=== PATIENT | female | born 1985 | race Caucasian/White ===

== ENCOUNTER 2017-07-07 12:00 | Emergency (ER) | payer OTHER ==
[2017-07-07 12:01] VITALS: BMI 23.0
[2017-07-07 12:22] VITALS: BP 122/83; PULSE 90; RESP 18; TEMP 98.1; O2SAT 100
--- NOTE | 2017-07-07 12:33 | C.PDOC ---
History Of Present Illness 32 year old female presents to the ER complaining of nasal congestion for 3 weeks. Patient reports lots of yellow mucus and reports frontal headache and left sided facial pain. Patient states the mucus has blood streaks for the past 2 days. Patient reports that she has been trying to call her PCP, but she has not been able to get an appointment. Patient states that she took the over the counter medication Mucinex which provided mild relief. Patient denies having any fever Time Seen by Provider: 07/07/17 12:24 Chief Complaint (Nursing): ENT Problem History Per: Patient History/Exam Limitations: no limitations Onset/Duration Of Symptoms: Days Current Symptoms Are (Timing): Still Present Severity: Moderate Past Medical History Reviewed: Historical Data, Nursing Documentation, Vital Signs Vital Signs: Last Vital Signs Temp 98.1 F 07/07/17 12:14 Pulse 90 07/07/17 12:14 Resp 18 07/07/17 12:14 BP 122/83 07/07/17 12:14 Pulse Ox 100 07/07/17 13:34 - Medical History PMH: Depression Surgical History: No Surg Hx Family History: States: No Known Family Hx - Social History Hx Alcohol Use: No Hx Substance Use: No Review Of Systems Except As Marked, All Systems Reviewed And Found Negative. Constitutional: Negative for: Fever, Chills Eyes: Negative for: Redness ENT: Positive for: Nose Congestion Cardiovascular: Negative for: Palpitations Respiratory: Positive for: Sputum (sputum has blood streaks). Negative for: Cough, Wheezing Gastrointestinal: Negative for: Vomiting, Abdominal Pain, Diarrhea Genitourinary: Negative for: Dysuria Skin: Negative for: Rash Neurological: Positive for: Headache. Negative for: Weakness, Numbness Physical Exam - Physical Exam Appears: Well, Non-toxic, No Acute Distress Skin: Normal Color, Warm Head: Atraumatic, Normacephalic Eye(s): bilateral: Normal Inspection, PERRL, EOMI Ear(s): Bilateral: Normal Nose: Other (congestion, no blood, left maxillary sinus tenderness) Oral Mucosa: Moist Throat: Normal, No Erythema, No Exudate, No Drooling, No Mass Neck: Normal ROM, Supple Chest: Symmetrical Cardiovascular: Rhythm Regular, No Murmur Respiratory: Normal Breath Sounds, No Accessory Muscle Use, No Wheezing Extremity: Bilateral: Atraumatic, Normal Color And Temperature, Normal ROM Neurological/Psych: Oriented x3, Normal Speech Gait: Steady ED Course And Treatment O2 Sat by Pulse Oximetry: 100 (RA) Pulse Ox Interpretation: Normal Medical Decision Making Medical Decision Making: Patient with nasal congestion and yellow blood streaked mucus for 3 weeks and no relief with OTC medications. Patient has no fever and in no distress. She has sinus tenderness. Will treat for sinusitis. Rx given. Advise follow up with PCP Disposition Counseled Patient/Family Regarding: Diagnosis, Need For Followup, Rx Given - Disposition Disposition: HOME/ ROUTINE Disposition Time: 12:32 Condition: STABLE Additional Instructions: Follow up with your primary medical doctor or clinic in 2-5 days for further evaluation. Take medications as prescribed. Return to the emergency department at any time if symptoms persist or worsen Prescriptions: Amoxicillin/Clavulanate [Augmentin 875 MG-125 MG] 1 tab PO BID #14 tab Fluticasone Propionate [Flonase] 1 spray NS DAILY #1 bottle Instructions: Sinusitis (ED) Forms: [employer] (Japanese) - POA Present On Arrival: None - Clinical Impression Clinical Impression: Sinusitis - PA / WOOL DYER / Resident Statement MD/DO has reviewed & agrees with the documentation as recorded. - Scribe Statement The provider has reviewed the documentation as recorded by the Yi Arellano All medical record entries made by the Yi were at my direction and personally dictated by me. I have reviewed the chart and agree that the record accurately reflects my personal performance of the history, physical exam, medical decision making, and the department course for this patient. I have also personally directed, reviewed, and agree with the discharge instructions and disposition.
== END 2017-07-07 12:47 | disposition home or self-care (01) ==
LOC: C.ER 12:00
DX: J32.9 Chronic sinusitis, unspecified (principal)

== ENCOUNTER 2017-11-13 07:38 | Emergency (ER) | payer OTHER ==
[2017-11-13 07:38] VITALS: BMI 23.0
[2017-11-13 08:34] VITALS: BP 123/81; PULSE 67; TEMP 98.6; O2SAT 100
[2017-11-13 09:11] LABS: HCG,QUALITATIVE URINE NEGATIVE (NEGATIVE); SQUAMOUS EPITHIAL < 1 /hpf (0-5); URINE BILIRUBIN NEGATIVE (NEGATIVE); URINE BLOOD NEGATIVE (NEGATIVE); URINE CLARITY Hazy (Clear); URINE COLOR Yellow (YELLOW); URINE GLUCOSE (UA) NORMAL (Normal); URINE PROTEIN 1+ mg/dL (NEGATIVE); URINE UROBILINOGEN NORMAL mg/dL (0.2-1.0)
[2017-11-13 09:12] LABS: URINE LEUKOCYTE ESTERASE TRACE Leu/uL (Negative)
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
[2017-11-13 10:33] VITALS: RESP 18
== END 2017-11-13 09:42 | disposition home or self-care (01) ==
LOC: C.ER 07:38
DX: Z91.89 Other specified personal risk factors, not elsewhere classified (principal)

== ENCOUNTER 2018-04-17 22:28 | Emergency (ER) | payer MEDICAID, OTHER ==
[2018-04-17 22:28] VITALS: BMI 23.0
[2018-04-17 23:11] VITALS: BP 116/78; PULSE 94; RESP 18; TEMP 98.6; O2SAT 99
[2018-04-18] MEDS ORDERED: Albuterol 0.083% Inhal Sol (2.5 mg/3 mL) UD IH STA (00:04)
--- NOTE | 2018-04-18 00:05 | C.PDOC ---
History Of Present Illness 33 yo female w/PMhx of asthma come in for evaluation of low grade fever , sore throat, dry cough gradually developed for past few days. pt reports, " throat pain worsen today". Otherwise, pt denies high fever, lethargy, drooling, neck pain, CP, dyspnea, SOB, wheezing, abd. pain, V/D, UTI sx, rash, recent travel or known sick contact. Ambulate to Ed for evaluation, not in any apparent distress. Time Seen by Provider: 04/17/18 22:59 Chief Complaint (Nursing): Cough, Cold, Congestion History Per: Patient Past Medical History Reviewed: Historical Data, Nursing Documentation, Vital Signs Vital Signs: Last Vital Signs Temp 98.6 F 04/17/18 23:08 Pulse 94 H 04/17/18 23:08 Resp 18 04/17/18 23:08 BP 116/78 04/17/18 23:08 Pulse Ox 99 04/17/18 23:08 - Medical History PMH: Asthma, Depression Family History: States: No Known Family Hx - Social History Hx Tobacco Use: No Hx Alcohol Use: Yes Hx Substance Use: No - Immunization History Hx Tetanus Toxoid Vaccination: No Hx Influenza Vaccination: No Hx Pneumococcal Vaccination: No Review Of Systems Except As Marked, All Systems Reviewed And Found Negative. Constitutional: Negative for: Fever, Chills, Malaise ENT: Positive for: Nose Discharge, Nose Congestion, Throat Pain, Throat Swelling Cardiovascular: Negative for: Chest Pain Respiratory: Positive for: Cough. Negative for: Shortness of Breath, Sputum, Wheezing Gastrointestinal: Negative for: Nausea, Vomiting, Abdominal Pain, Diarrhea Genitourinary: Negative for: Dysuria Musculoskeletal: Negative for: Neck Pain, Back Pain Skin: Negative for: Rash Neurological: Negative for: Weakness, Numbness, Headache, Dizziness Physical Exam - Physical Exam Appears: Well, Non-toxic, No Acute Distress Skin: Normal Color, Warm, Dry, No Rash Head: Normacephalic Eye(s): bilateral: PERRL Ear(s): Bilateral: Normal Nose: No Flaring, Discharge (B/L nasal congestion with scant clear hinorrhea ) Oral Mucosa: Moist Tongue: Normal Appearing Lips: Normal Appearing Throat: Erythema (mod B/L), No Exudate, No Drooling, Other (uvula midline, no edema) Neck: Supple, Other ((-) meningeal sign) Cardiovascular: Rhythm Regular, No Murmur, No JVD Respiratory: No Decreased Breath Sounds, No Accessory Muscle Use, No Stridor, Wheezing (scattered Right basilra exp wheezing. BS equal B/L) Gastrointestinal/Abdominal: Soft, No Tenderness, No Distention, No Guarding, No Rebound Rectal: No Deferred Extremity: Normal ROM, No Deformity, No Swelling Neurological/Psych: Oriented x3, Normal Speech, Normal Motor, Normal Sensation, Normal Reflexes ED Course And Treatment O2 Sat by Pulse Oximetry: 99 Pulse Ox Interpretation: Normal Progress Note: On re-eval, pt is afebrile, hemodynamicaly stable, non-toxic. T olerate PO well in ED. PulsEOx 99% RA. ENT: exam c/w acute pharyngitis. Neck: Supple, (-) meningeal sign. Lungs: CTA B/L, BS equal B/L. CVS: (+)S1S2, reg, (-) murmur. Abd: benign, (-) guarding, (-) rebound. Neurologicaly intact. Pt advised on course of ds. Ref. to f/u with PMD in 1-2 days for re-eavl. return to ED if any worsening or new changes. Disposition Counseled Patient/Family Regarding: Diagnosis, Need For Followup, Rx Given - Disposition Referrals: [facility] [Outside] Disposition: HOME/ ROUTINE Disposition Time: 00:22 Condition: STABLE Additional Instructions: Encourage fluids take medication as prescribed Follow up with PMD in 2-3 days for re-evaluation. return to ED if any worsening or new changes. Prescriptions: Albuterol HFA [Ventolin HFA 90 mcg/actuation (8 g)] 1 puff IH Q6 #1 inhaler Amoxicillin 875 mg PO BID #14 tablet Prednisone [Deltasone] 20 mg PO DAILY #3 tablet Instructions: Asthma in Adults, Sore Throat, Adult (DC) Forms: [employer] (Mozambican) - Clinical Impression Clinical Impression: Pharyngitis, Asthma
[2018-04-18] MEDS ORDERED: Albuterol 0.083% Inhal Sol (2.5 mg/3 mL) UD ONE (00:15)
== END 2018-04-18 01:08 | disposition home or self-care (01) ==
LOC: C.ER 22:28
DX: J02.9 Acute pharyngitis, unspecified (principal); J45.909 Unspecified asthma, uncomplicated